=== PATIENT | female | born 2000 | race Caucasian/White ===

== ENCOUNTER 2020-07-16 12:00 | Emergency (ER) | payer MEDICAID ==
[~2020-07-16] VITALS: Ht 157.5 cm; Wt 60.8 kg
[2020-07-16 12:15] VITALS: BP_SYST 116
[2020-07-16] MEDS ORDERED: NACL 0.9% 1,000 ML IV ONE (12:51)
[2020-07-16] MEDS ORDERED: ONDANSETRON HCL 4 MG/2 ML VIAL IVP ONE (13:00)
[2020-07-16] MEDS ORDERED: KETOROLAC TROMETHAMINE 30 MG VIAL IVP ONE (13:00)
[2020-07-16 13:09] LABS: BASOPHILS % (AUTO) 0.3 % (0.0-2.0); HEMATOCRIT 44.1 % (36-48); HEMOGLOBIN 15.1 g/dL (12.0-16.0); LYMPHOCYTES # (AUTO) 0.6 K/uL (1.0-5.5); LYMPHOCYTES % (AUTO) 4.3 % (20.5-51.5); MEAN CORPUSCULAR HEMOGLOBIN 31 pg (27-31); MEAN CORPUSCULAR HGB CONC 34 % (32-36); MEAN CORPUSCULAR VOLUME 92 fL (79.0-98.0); MONOCYTES # (AUTO) 0.4 K/uL (0.0-1.0); MONOCYTES % (AUTO) 2.8 % (1.7-9.3); NEUTROPHILS % (AUTO) 92.6 % (40.0-70.0); PLATELET COUNT (AUTO) 314 K/uL (130-430); RED BLOOD CELL COUNT(AUTO) 4.81 MIL/uL (4.2-6.2); RED CELL DISTRIBUTION WIDTH 12.8 % (9.0-15.0); WHITE BLOOD COUNT (AUTO) 12.9 K/uL (4.8-10.8)
[2020-07-16 13:22] LABS: CALCIUM 9.4 mg/dL (8.4-11.0); CREATININE 0.79 mg/dL (0.55-1.30); POTASSIUM 3.2 mmol/L (3.5-5.1)
[2020-07-16 13:26] LABS: ALBUMIN 4.3 g/dL (3.4-4.8); TOTAL BILIRUBIN 0.9 mg/dL (0.0-1.0)
[2020-07-16 14:05] LABS: BARBITURATE, URINE NEGATIVE (NEG <=200); BENZODIAZEPINE, URINE NEGATIVE (NEG <=150); COCAINE, URINE NEGATIVE (NEG <=150); METHAMPHETAMINES SCREEN,URINE NEGATIVE (NEG <=500); OPIATE, URINE NEGATIVE (NEG <=100); PHENCYCLIDINE SCREEN,URINE NEGATIVE (NEG <=25); UR TRICYCLIC ANTIDEPRESSANTS NEGATIVE (NEG <=300); URINE AMPHETAMINE NEGATIVE (NEG <=500); URINE METHADONE NEGATIVE (NEG <=200); URINE OXYCODONE SCREEN NEGATIVE (NEG <=100); URINE PROPOXYPHENE SCREEN NEGATIVE (NEG <=300)
[2020-07-16 14:06] LABS: CANNABINOID, URINE POSITIVE (NEG <=50)
[2020-07-16] MEDS ORDERED: HALOPERIDOL LACTATE 5 MG/ML VIAL IVP ONE (14:15)
[2020-07-16] MEDS ORDERED: KCL 20 mEq in 100 mL (PREMIX) 100 ML IV ONE (14:30)
[2020-07-16 16:52] VITALS: BP_SYST 116
== END 2020-07-16 16:52 | disposition home or self-care (01) ==
LOC: SED 12:00
DX: E87.6 Hypokalemia (principal); F12.988 Cannabis use, unspecified with other cannabis-induced disorder; R11.2 Nausea with vomiting, unspecified
CPT/HCPCS: 36415; 80053; 80307; 83690; 85025; 93005; 96365; 96366; 96375; 99284; J1630; J1885; J2405; J3480

== ENCOUNTER 2020-08-23 18:54 | Emergency (ER) | payer MEDICAID, SELFPAY ==
[~2020-08-23] VITALS: Ht 160 cm; Wt 63.5 kg
[2020-08-23 19:01] VITALS: BP_SYST 106
[2020-08-23 20:50] LABS: BASOPHILS % (AUTO) 0.1 % (0.0-2.0); HEMATOCRIT 42.3 % (36-48); HEMOGLOBIN 14.9 g/dL (12.0-16.0); LYMPHOCYTES # (AUTO) 0.8 K/uL (1.0-5.5); LYMPHOCYTES % (AUTO) 4.3 % (20.5-51.5); MEAN CORPUSCULAR HEMOGLOBIN 32 pg (27-31); MEAN CORPUSCULAR HGB CONC 35 % (32-36); MEAN CORPUSCULAR VOLUME 90 fL (79.0-98.0); MONOCYTES # (AUTO) 0.5 K/uL (0.0-1.0); NEUTROPHILS # (AUTO) 16.7 K/uL (1.8-7.7); NEUTROPHILS % (AUTO) 92.6 % (40.0-70.0); PLATELET COUNT (AUTO) 334 K/uL (130-430); RED BLOOD CELL COUNT(AUTO) 4.72 MIL/uL (4.2-6.2); RED CELL DISTRIBUTION WIDTH 12.2 % (9.0-15.0)
[2020-08-23 21:11] LABS: CALCIUM 9.1 mg/dL (8.4-11.0); CREATININE 0.69 mg/dL (0.55-1.30); POTASSIUM 3.6 mmol/L (3.5-5.1)
[2020-08-23 21:16] LABS: ALBUMIN 4.5 g/dL (3.4-4.8); TOTAL BILIRUBIN 1.3 mg/dL (0.0-1.0)
[2020-08-23] MEDS ORDERED: NACL 0.9% 1,000 ML IV ONE (21:30)
[2020-08-23] MEDS ORDERED: HALOPERIDOL LACTATE 5 MG/ML VIAL IVP ONE (22:15)
[2020-08-24 00:13] VITALS: BP_SYST 106
== END 2020-08-24 00:10 | disposition home or self-care (01) ==
LOC: SED 18:54
DX: R11.10 Vomiting, unspecified (principal)
CPT/HCPCS: 36415; 74177; 76700; 80053; 81025; 83690; 85025; 96361; 96374; 99285; J1630; J7030; Q9967

== ENCOUNTER 2021-04-20 20:31 | Emergency (ER) | payer MEDICAID, SELFPAY ==
[~2021-04-20] VITALS: Ht 157.5 cm; Wt 61.7 kg
[2021-04-20 20:31] VITALS: BP_SYST 125
[2021-04-20] MEDS ORDERED: MAG-AL HYDROX/SIMETH 30 ML UDC PO ONE (21:15)
[2021-04-20] MEDS ORDERED: LIDOCAINE VISCOUS 2%, 15 ML UDC MM ONE (21:15)
[2021-04-20] MEDS ORDERED: FAMO40TA71 PO (21:44)
[2021-04-20 22:00] VITALS: BP_SYST 125
== END 2021-04-20 22:00 | disposition home or self-care (01) ==
LOC: SED 20:31
DX: F12.988 Cannabis use, unspecified with other cannabis-induced disorder (principal); K21.9 Gastro-esophageal reflux disease without esophagitis; Z79.899 Other long term (current) drug therapy
CPT/HCPCS: 93005; 99283; J2001

== ENCOUNTER 2021-04-22 22:23 | Emergency (ER) | payer MEDICAID, SELFPAY ==
[~2021-04-22] VITALS: Ht 157.5 cm; Wt 61.2 kg
[~2021-04-22 22:23] MED LIST: FAMO40TA71 PO
[2021-04-22 22:30] VITALS: BP_SYST 141
[2021-04-22] MEDS ORDERED: ONDANSETRON 4 MG ODT TAB PO ONE (22:45)
[2021-04-22] MEDS ORDERED: ONDANSETRON HCL 4 MG/2 ML VIAL IVP ONE (23:00)
[2021-04-22] MEDS ORDERED: DIPHENHYDRAMINE INJ 50 MG/ML VIAL IVP ONE (23:30)
[2021-04-22] MEDS ORDERED: METOCLOPRAMIDE HCL 10 MG/2 ML VIAL IVP ONE (23:30)
[2021-04-22] MEDS ORDERED: NACL 0.9% 1,000 ML IV ONE (23:30)
[2021-04-22 23:38] LABS: BILIRUBIN,URINE 1+ (NEGATIVE); BLOOD, URINE 1+ (NEGATIVE); CLARITY/URINE SL CLOUDY (CLEAR); COLOR,URINE YELLOW (YELLOW); GLUCOSE,URINE NEGATIVE (NEGATIVE); KETONES,URINE 3+ (NEGATIVE); LEUKOCYTE ESTERASE ,URINE 2+ (NEGATIVE); NITRITE, URINE NEGATIVE (NEGATIVE); PROTEIN URINE TRACE (NEGATIVE)
[2021-04-22 23:43] LABS: BACTERIA,URINE MODERATE /HPF (None Seen)
[2021-04-22 23:50] LABS: BASOPHILS # (AUTO) 0.2 K/uL (0.0-0.2); BASOPHILS % (AUTO) 1.9 % (0.0-2.0); EOSINOPHILS % (AUTO) 0.1 % (0.0-4.0); HEMATOCRIT 42.5 % (36-48); HEMOGLOBIN 14.7 g/dL (12.0-16.0); LYMPHOCYTES # (AUTO) 1.7 K/uL (1.0-5.5); LYMPHOCYTES % (AUTO) 16.2 % (20.5-51.5); MEAN CORPUSCULAR HEMOGLOBIN 32 pg (27-31); MEAN CORPUSCULAR HGB CONC 35 % (32-36); MEAN CORPUSCULAR VOLUME 91 fL (79.0-98.0); MONOCYTES # (AUTO) 0.5 K/uL (0.0-1.0); MONOCYTES % (AUTO) 4.4 % (1.7-9.3); NEUTROPHILS % (AUTO) 77.4 % (40.0-70.0); PLATELET COUNT (AUTO) 342 K/uL (130-430); RED BLOOD CELL COUNT(AUTO) 4.65 MIL/uL (4.2-6.2); RED CELL DISTRIBUTION WIDTH 12.8 % (9.0-15.0); WHITE BLOOD COUNT (AUTO) 10.3 K/uL (4.8-10.8)
[2021-04-22 23:54] LABS: CALCIUM 8.9 mg/dL (8.4-11.0); CREATININE 0.83 mg/dL (0.55-1.30)
[2021-04-23] LABS: TOTAL BILIRUBIN 0.9 mg/dL (0.0-1.0)
[2021-04-23] MEDS ORDERED: KCL 20 mEq in NS 1000 mL 1,000 ML IV ONE
[2021-04-23 00:01] LABS: POTASSIUM 2.7 mmol/L (3.5-5.1)
[2021-04-23] MEDS ORDERED: KCL 20 mEq in 100 mL (PREMIX) 100 ML IV ONE (00:15)
[2021-04-23] MEDS ORDERED: KETOROLAC TROMETHAMINE 30 MG VIAL IVP ONE (00:30)
[2021-04-23] MEDS ORDERED: METOCLOPRAMIDE HCL 10 MG/2 ML VIAL IVP ONE (01:15)
[2021-04-23] MEDS ORDERED: NACL 0.9% 1,000 ML IV ONE (01:15)
[2021-04-23] MEDS ORDERED: DIPHENHYDRAMINE INJ 50 MG/ML VIAL IVP ONE (01:30)
[2021-04-23] MEDS ORDERED: CIPR500T5 PO (02:00)
[2021-04-23] MEDS ORDERED: PHE25 PO (02:00)
[2021-04-23] MEDS ORDERED: IBUP-1969 PO (02:00)
[2021-04-23 02:49] VITALS: BP_SYST 107
[2021-04-23] MEDS ORDERED: HAL5 PO (07:47)
[2021-04-23] MEDS ORDERED: BENZ1TAB8 PO (07:47)
== END 2021-04-23 02:49 | disposition home or self-care (01) ==
LOC: SED 22:23
DX: N39.0 Urinary tract infection, site not specified (principal); R11.2 Nausea with vomiting, unspecified; K21.9 Gastro-esophageal reflux disease without esophagitis; Z79.899 Other long term (current) drug therapy
CPT/HCPCS: 36415; 80053; 81000; 81025; 83690; 85025; 87086; 96361; 96365; 96366; 96375 ×2; 96376; 99284; J1200 ×2; J1885; J2405; J2765 ×2; J3480; J7030

== ENCOUNTER 2021-04-23 06:23 | Emergency (ER) | payer MEDICAID ==
[~2021-04-23] VITALS: Ht 157.5 cm; Wt 61.2 kg
[2021-04-23 06:23] VITALS: BP_SYST 140
[~2021-04-23 06:23] MED LIST changes: +CIPR500T5 PO; +IBUP-1969 PO; +PHE25 PO
[2021-04-23] MEDS: DIPHENHYDRAMINE INJ 50 MG/ML VIAL IVP ONE (06:52)
[2021-04-23] MEDS: KETOROLAC TROMETHAMINE 30 MG VIAL IVP ONE (06:54)
[2021-04-23] MEDS: HALOPERIDOL LACTATE 5 MG/ML VIAL IVP ONE (06:55)
[2021-04-23] MEDS: NACL 0.9% 1,000 ML IV ONE (06:56)
[2021-04-23 07:04] LABS: BASOPHILS % (AUTO) 0.3 % (0.0-2.0); HEMATOCRIT 39.5 % (36-48); LYMPHOCYTES # (AUTO) 1.3 K/uL (1.0-5.5); LYMPHOCYTES % (AUTO) 11.9 % (20.5-51.5); MEAN CORPUSCULAR HEMOGLOBIN 32 pg (27-31); MEAN CORPUSCULAR HGB CONC 35 % (32-36); MEAN CORPUSCULAR VOLUME 90 fL (79.0-98.0); MONOCYTES # (AUTO) 0.5 K/uL (0.0-1.0); MONOCYTES % (AUTO) 5.1 % (1.7-9.3); NEUTROPHILS # (AUTO) 8.9 K/uL (1.8-7.7); NEUTROPHILS % (AUTO) 82.7 % (40.0-70.0); PLATELET COUNT (AUTO) 311 K/uL (130-430); RED BLOOD CELL COUNT(AUTO) 4.38 MIL/uL (4.2-6.2); RED CELL DISTRIBUTION WIDTH 12.3 % (9.0-15.0); WHITE BLOOD COUNT (AUTO) 10.8 K/uL (4.8-10.8)
[2021-04-23 07:12] LABS: CALCIUM 8.3 mg/dL (8.4-11.0); CREATININE 0.67 mg/dL (0.55-1.30); POTASSIUM 3.3 mmol/L (3.5-5.1)
[2021-04-23 07:23] LABS: ALBUMIN 3.7 g/dL (3.4-4.8); TOTAL BILIRUBIN 0.9 mg/dL (0.0-1.0)
[2021-04-23] MEDS: POTASSIUM CHLORIDE 20 MEQ TAB.PRT.SR PO ONE (07:34)
[2021-04-23] MEDS ORDERED: BENZ1TAB8 PO (07:47)
[2021-04-23] MEDS ORDERED: HAL5 PO (07:47)
[2021-04-23 07:52] VITALS: BP_SYST 140
== END 2021-04-23 07:53 | disposition home or self-care (01) ==
LOC: SED 06:23
DX: F12.988 Cannabis use, unspecified with other cannabis-induced disorder (principal); R11.10 Vomiting, unspecified; K21.9 Gastro-esophageal reflux disease without esophagitis; Z79.899 Other long term (current) drug therapy
CPT/HCPCS: 36415; 80053; 85025; 93005; 96361; 96374; 96375; 99284; J1200; J1630; J1885; J7030

== ENCOUNTER 2021-09-21 12:07 | Emergency (ER) | payer MEDICAID ==
[~2021-09-21] VITALS: Ht 162.6 cm; Wt 70.3 kg
[~2021-09-21 12:07] MED LIST changes: +BENZ1TAB8 PO; -FAMO40TA71 PO; +HAL5 PO
[2021-09-21 13:08] VITALS: BP_SYST 124
--- NOTE | 2021-09-21 13:17 | NUR ---
Patient to ER bed T-1 to gown for evaluation. Side rails up. Report given to PELON.
[2021-09-21] MEDS ORDERED: ONDANSETRON 4 MG ODT TAB PO ONE (14:15)
[2021-09-21 14:52] LABS: BASOPHILS % (AUTO) 0.1 % (0.0-2.0); HEMATOCRIT 41.7 % (36-48); LYMPHOCYTES # (AUTO) 0.7 K/uL (1.0-5.5); MEAN CORPUSCULAR HEMOGLOBIN 31 pg (27-31); MEAN CORPUSCULAR HGB CONC 34 % (32-36); MEAN CORPUSCULAR VOLUME 92 fL (79.0-98.0); MONOCYTES # (AUTO) 0.5 K/uL (0.0-1.0); MONOCYTES % (AUTO) 2.8 % (1.7-9.3); NEUTROPHILS % (AUTO) 93.1 % (40.0-70.0); PLATELET COUNT (AUTO) 333 K/uL (130-430); RED BLOOD CELL COUNT(AUTO) 4.52 MIL/uL (4.2-6.2); RED CELL DISTRIBUTION WIDTH 12.6 % (9.0-15.0); WHITE BLOOD COUNT (AUTO) 18.3 K/uL (4.8-10.8)
[2021-09-21 15:10] LABS: ANION GAP 14 (5-15); CALCIUM 8.9 mg/dL (8.4-11.0); CHLORIDE 104 mmol/L (98-107); CREATININE 0.77 mg/dL (0.55-1.30); GLUCOSE 134 mg/dL (70-99); POTASSIUM 3.8 mmol/L (3.5-5.1); SODIUM SERUM 141 mmol/L (136-145); UREA NITROGEN, BLOOD 16 mg/dL (8-21)
[2021-09-21 15:12] LABS: GFR AFRICAN AMERICAN 119 mL/min (>90)
[2021-09-21 15:16] LABS: ALANINE AMINOTRANSFERASE 33 U/L (12-78); ALBUMIN 4.3 g/dL (3.4-4.8); AMYLASE 43 U/L (0-100); ASPARTATE AMINOTRANSFERASE 24 U/L (10-37); LIPASE 98 U/L (73-393); TOTAL BILIRUBIN 0.4 mg/dL (0.0-1.0)
[2021-09-21 15:19] LABS: C-REACTIVE PROTEIN QUANT < 0.2 mg/dL (0-0.5); PROTHROMBIN TIME 10.3 SECS (9.5-12.5)
[2021-09-21 15:26] LABS: BILIRUBIN,URINE NEGATIVE (NEGATIVE); CLARITY/URINE CLEAR (CLEAR); COLOR,URINE YELLOW (YELLOW); GLUCOSE,URINE NEGATIVE (NEGATIVE); KETONES,URINE TRACE (NEGATIVE); LEUKOCYTE ESTERASE ,URINE NEGATIVE (NEGATIVE); NITRITE, URINE NEGATIVE (NEGATIVE); PROTEIN URINE NEGATIVE (NEGATIVE)
[2021-09-21 15:45] LABS: BLOOD, URINE TRACE (NEGATIVE)
[2021-09-21 15:47] LABS: BACTERIA,URINE FEW /HPF (None Seen); MUCUS,URINE None Seen /LPF (None Seen); RBC,URINE 0-3 /HPF (0-3); WBC,URINE 0-3 /HPF (0-3)
[2021-09-21] MEDS ORDERED: OMEP20CA15 PO (17:41)
[2021-09-21] MEDS ORDERED: METO-290 PO (17:41)
== END 2021-09-21 17:41 | disposition home or self-care (01) ==
LOC: SED 12:07
DX: K31.84 Gastroparesis (principal); I10 Essential (primary) hypertension; Z79.899 Other long term (current) drug therapy
CPT/HCPCS: 36415; 76376; 80053; 81000; 81025; 82150; 83605; 83690; 84703; 85025; 85610-TC; 85730-TC; 86140; 99284

== ENCOUNTER 2022-11-02 06:08 | Emergency (ER) | payer MEDICAID ==
[~2022-11-02] VITALS: Ht 160 cm; Wt 63.5 kg
[~2022-11-02 06:08] MED LIST changes: +METO-290 PO; +OMEP20CA15 PO
[2022-11-02 06:21] VITALS: BP_SYST 137
--- NOTE | 2022-11-02 06:21 | NUR ---
Patient triaged and placed in waiting room. VSS and patient appears in no acute distress at this time. Awaiting available bed, and MD notified of need for MSE.
--- NOTE | 2022-11-02 06:58 | NUR ---
Patient to [facility] for evaluation. Side rails up. Report given to Sarika SHANKS.
--- NOTE | 2022-11-02 06:59 | NUR ---
ER at bedside examining patient.
[2022-11-02] MEDS ORDERED: HALOPERIDOL LACTATE 5 MG/ML VIAL IM ONE (07:00)
[2022-11-02] MEDS ORDERED: DIPHENHYDRAMINE INJ 50 MG/ML VIAL IM ONE (07:00)
--- NOTE | 2022-11-02 07:10 | NUR ---
RECIEVED REPORT FROM DIMITRIS DA SILVA. PT IS AAOX3, VSS, NO EMESIS AT THIS TIME.
[2022-11-02 07:57] LABS: CALCIUM 9.1 mg/dL (8.4-11.0); CREATININE 0.91 mg/dL (0.55-1.30)
--- NOTE | 2022-11-02 08:00 | NUR ---
real estate clerk COLLECTED BLOOD FOR ANALYSIS, COLLECTED URINE FOR poc hcG URINE IS NEGATIVE.
[2022-11-02] MEDS ORDERED: HAL5 PO (08:10)
[2022-11-02] MEDS ORDERED: BENZ1TAB8 PO (08:10)
[2022-11-02 08:32] VITALS: BP_SYST 121
--- NOTE | 2022-11-02 08:32 | NUR ---
Patient given written and verbal discharge instructions and verbalizes understanding. ER MD discussed with patient the results and treatment provided. Patient in stable condition. ID arm band removed. IV catheter removed intact and dressing applied, no active bleeding. Rx of HALDOL AND COGENTIN given. Patient educated on pain management and to follow up with PMD. Opportunity for questions provided and answered. Medication side effect fact sheet provided.
[2022-11-03] MEDS ORDERED: OMEP20TA20 PO (17:08)
[2022-11-03] MEDS ORDERED: ONDA-8 TL (17:08)
== END 2022-11-02 08:32 | disposition home or self-care (01) ==
LOC: SED 06:08
DX: R11.2 Nausea with vomiting, unspecified (principal); K21.9 Gastro-esophageal reflux disease without esophagitis; F12.90 Cannabis use, unspecified, uncomplicated; Z79.899 Other long term (current) drug therapy
CPT/HCPCS: 99284; 80048; 36415; 81025; 96372; J1200; J1630

== ENCOUNTER 2022-11-03 14:35 | Emergency (ER) | payer MEDICAID ==
[~2022-11-03] VITALS: Ht 152.4 cm; Wt 61.2 kg
[2022-11-03 14:51] VITALS: BP_SYST 125
[2022-11-03] MEDS ORDERED: ONDANSETRON 4 MG ODT TAB PO ONE (15:00)
--- NOTE | 2022-11-03 15:25 | NUR ---
Pt brought by self, A&Ox4, pt presents to ER with nausea and vomiting for one week , states she smokes marijuana, skin pink and warm, cap refill <3, VSS, will cont to monitor.
--- NOTE | 2022-11-03 15:50 | NUR ---
Dr Bennett evaluating patient in the triage room
[2022-11-03] MEDS ORDERED: OMEPRAZOLE Non-Formulary 20 MG CAPSULE.DR PO ONE (16:00)
[2022-11-03] MEDS ORDERED: METOCLOPRAMIDE HCL 10 MG/2 ML VIAL IM ONE (16:00)
[2022-11-03] MEDS ORDERED: PANTOPRAZOLE SODIUM 40 MG TAB PO ONE (16:15)
--- NOTE | 2022-11-03 16:30 | NUR ---
No N/V noted at this time, VSS, will cont to monitor
[2022-11-03] MEDS ORDERED: OMEP20TA20 PO (17:08)
[2022-11-03] MEDS ORDERED: ONDA-8 TL (17:08)
[2022-11-03 19:17] VITALS: BP_SYST 125
--- NOTE | 2022-11-03 19:18 | NUR ---
Patient given written and verbal discharge instructions and verbalizes understanding. ER MD discussed with patient the results and treatment provided. Patient in stable condition. ID arm band removed. Rx of Omeprazole and Zofran given. Patient educated on pain management and to follow up with PMD. Pain Scale 0/10 . Opportunity for questions provided and answered. Medication side effect fact sheet provided.
== END 2022-11-03 19:18 | disposition home or self-care (01) ==
LOC: SED 14:35
DX: R11.2 Nausea with vomiting, unspecified (principal); K21.9 Gastro-esophageal reflux disease without esophagitis; F17.200 Nicotine dependence, unspecified, uncomplicated; F12.90 Cannabis use, unspecified, uncomplicated; Z79.899 Other long term (current) drug therapy
CPT/HCPCS: 99283; 96372; Q0162; J2765

== ENCOUNTER → 2022-11-24 | Emergency (ER) | payer MEDICAID ==
[~2022-11-24] VITALS: Ht 160 cm; Wt 61.7 kg
[~2022-11-24] MED LIST changes: +DIPHENHYDRAMINE INJ 50 MG/ML VIAL IVP ONE; +HALOPERIDOL LACTATE 5 MG/ML VIAL IVP ONE; +NACL 0.9% 1,000 ML IV ONE; +OMEP20TA20 PO; +ONDA-8 TL
[2022-11-24 08:53] VITALS: BP_SYST 141
[2022-11-24 09:34] LABS: BASOPHILS % (AUTO) 0.2 % (0.0-2.0); EOSINOPHILS # (AUTO) 0.1 K/uL (0.0-0.4); EOSINOPHILS % (AUTO) 0.5 % (0.0-4.0); HEMATOCRIT 43.6 % (36-48); HEMOGLOBIN 14.6 g/dL (12.0-16.0); LYMPHOCYTES % (AUTO) 8.8 % (20.5-51.5); MEAN CORPUSCULAR HEMOGLOBIN 32 pg (27-31); MEAN CORPUSCULAR HGB CONC 34 % (32-36); MEAN CORPUSCULAR VOLUME 95 fL (79.0-98.0); MONOCYTES # (AUTO) 0.4 K/uL (0.0-1.0); MONOCYTES % (AUTO) 3.7 % (1.7-9.3); NEUTROPHILS # (AUTO) 10.2 K/uL (1.8-7.7); NEUTROPHILS % (AUTO) 86.8 % (40.0-70.0); PLATELET COUNT (AUTO) 302 K/uL (130-430); RED CELL DISTRIBUTION WIDTH 12.8 % (9.0-15.0); WHITE BLOOD COUNT (AUTO) 11.8 K/uL (4.8-10.8)
[2022-11-24 09:49] LABS: CALCIUM 9.1 mg/dL (8.4-11.0); CREATININE 0.68 mg/dL (0.55-1.30)
[2022-11-24 09:54] LABS: ALBUMIN 4.2 g/dL (3.4-4.8); TOTAL BILIRUBIN 0.6 mg/dL (0.0-1.0)
== END | disposition home or self-care (01) ==
LOC: SED 08:40
DX: R11.10 Vomiting, unspecified (principal); K21.9 Gastro-esophageal reflux disease without esophagitis; Z79.899 Other long term (current) drug therapy
CPT/HCPCS: 99284; 96374; 96375; 80053; 83690; 85025; 36415; 93005; J1200; J1630

== ENCOUNTER 2022-11-27 06:10 | Emergency (ER) | payer MEDICAID ==
[~2022-11-27] VITALS: Ht 162.6 cm; Wt 59.0 kg
[~2022-11-27 06:10] MED LIST changes: -DIPHENHYDRAMINE INJ 50 MG/ML VIAL IVP ONE; -HALOPERIDOL LACTATE 5 MG/ML VIAL IVP ONE; -NACL 0.9% 1,000 ML IV ONE
[2022-11-27 06:44] VITALS: BP_SYST 132
--- NOTE | 2022-11-27 06:44 | NUR ---
ER in triage examining patient.
[2022-11-27] MEDS ORDERED: DIPHENHYDRAMINE INJ 50 MG/ML VIAL IVP ONE ×2 (06:45→09:00)
[2022-11-27] MEDS ORDERED: NACL 0.9% 1,000 ML IV ONE ×2 (06:45→09:00)
[2022-11-27] MEDS ORDERED: HALOPERIDOL LACTATE 5 MG/ML VIAL IVP ONE ×2 (06:45→09:00)
--- NOTE | 2022-11-27 06:47 | NUR ---
Patient triaged and placed in waiting room. VS checked and patient appears in no acute distress at this time. Accompanied by self, awaiting available bed, and MD notified of need for MSE.
[2022-11-27 07:38] LABS: CALCIUM 9.5 mg/dL (8.4-11.0); CREATININE 0.72 mg/dL (0.55-1.30)
[2022-11-27 07:43] LABS: HEMATOCRIT 43.7 % (36-48); HEMOGLOBIN 15.6 g/dL (12.0-16.0); MEAN CORPUSCULAR HEMOGLOBIN 33 pg (27-31); MEAN CORPUSCULAR HGB CONC 36 % (32-36); MEAN CORPUSCULAR VOLUME 91 fL (79.0-98.0); RED BLOOD CELL COUNT(AUTO) 4.78 MIL/uL (4.2-6.2)
[2022-11-27 07:44] LABS: BASOPHILS % (AUTO) 0.3 % (0.0-2.0); EOSINOPHILS % (AUTO) 0.1 % (0.0-4.0); LYMPHOCYTES # (AUTO) 1.6 K/uL (1.0-5.5); LYMPHOCYTES % (AUTO) 17.9 % (20.5-51.5); MONOCYTES % (AUTO) 10.7 % (1.7-9.3); NEUTROPHILS # (AUTO) 6.4 K/uL (1.8-7.7); PLATELET COUNT (AUTO) 308 K/uL (130-430); RED CELL DISTRIBUTION WIDTH 12.2 % (9.0-15.0)
[2022-11-27 07:49] LABS: ALBUMIN 4.6 g/dL (3.4-4.8); TOTAL BILIRUBIN 2.4 mg/dL (0.0-1.0)
--- NOTE | 2022-11-27 08:20 | NUR ---
Note bud in EDM - 11/27/22 at 0823 by TERRIE Pt awake alert, complains of unrelated cough. No signs symptoms of cough. Pt provided warm blanket, basin for emesis, bed down rails up.
[2022-11-27 08:34] LABS: BILIRUBIN,URINE 1+ (NEGATIVE); BLOOD, URINE 1+ (NEGATIVE); CLARITY/URINE CLEAR (CLEAR); COLOR,URINE YELLOW (YELLOW); GLUCOSE,URINE NEGATIVE (NEGATIVE); KETONES,URINE 2+ (NEGATIVE); LEUKOCYTE ESTERASE ,URINE NEGATIVE (NEGATIVE); NITRITE, URINE NEGATIVE (NEGATIVE); PROTEIN URINE NEGATIVE (NEGATIVE); UROBILINOGEN,URINE 0.2 (0.2-1.0)
--- NOTE | 2022-11-27 08:44 | NUR ---
SPOKE TO DR JACKSON ABOUT PT CONDITION, THE EXTREME NAUSEA AND HOW LONG IT HAS LASTED ACCORDING TO PT SINCE WEDNESDAY. ACCORDING TO PT SHE HAS NOT EATEN SINCE WEDNESDAY, SHE CANT HOLD WATER IN. THE PERSCRIPTIONS THE DR ORDERED WEDNESDAY PT STATED SHE COULDNT HOLD THEM IN AND THREW THEM UP. I SPOKE TO DR JACKSON THIS MORNING ABOUT A POSSIBLE CT SCAN OF THE ABD. I WAS TOLD SHE IS STILL SMOKING WEED AND THAT IS WHAT IS CAUSING THE PT GI DISTURBANCE. PT ALSO MENTION SHE UNDERSTANDS SHE HAS CHS CANABIS HYPEREMESIS SYNDROME BUT DENIES SMOKING FOR 3 WEEKS NOW. PT CLAIMS THIS GI DISTURBANCE AND HALDOL MEDICATION IS STOPPING HER FROM WORKING. VSS. MEDICATED ORDER. WILL CONTINUE TO MONITOR.
[2022-11-27 08:46] LABS: BARBITURATE, URINE NEGATIVE (NEG <=200); BENZODIAZEPINE, URINE NEGATIVE (NEG <=150); CANNABINOID, URINE POSITIVE (NEG <=50); COCAINE, URINE NEGATIVE (NEG <=150); METHAMPHETAMINES SCREEN,URINE NEGATIVE (NEG <=500); OPIATE, URINE NEGATIVE (NEG <=100); PHENCYCLIDINE SCREEN,URINE NEGATIVE (NEG <=25); UR TRICYCLIC ANTIDEPRESSANTS NEGATIVE (NEG <=300); URINE AMPHETAMINE NEGATIVE (NEG <=500); URINE METHADONE NEGATIVE (NEG <=200); URINE OXYCODONE SCREEN NEGATIVE (NEG <=100); URINE PROPOXYPHENE SCREEN NEGATIVE (NEG <=300)
[2022-11-27] MEDS ORDERED: POTASSIUM CHLORIDE 20 MEQ/PKT PACKET PO ONE (09:00)
[2022-11-27 09:41] LABS: BACTERIA,URINE FEW /HPF (None Seen); MUCUS,URINE 2+ /LPF (None Seen); WBC,URINE 0-3 /HPF (0-3)
[2022-11-27 09:53] VITALS: BP_SYST 132
--- NOTE | 2022-11-27 09:53 | NUR ---
Patient given written and verbal discharge instructions and verbalizes understanding. ER MD discussed with patient the results and treatment provided. Patient in stable condition. ID arm band removed. IV catheter removed intact and dressing applied, no active bleeding. Patient educated on CANNABINOID HYPEREMESIS SYNDROME and to follow up with PMD. Opportunity for questions provided and answered. Medication side effect fact sheet provided.
== END 2022-11-27 09:53 | disposition home or self-care (01) ==
LOC: SED 06:10
DX: R11.2 Nausea with vomiting, unspecified (principal); R10.84 Generalized abdominal pain; K21.9 Gastro-esophageal reflux disease without esophagitis; Z79.899 Other long term (current) drug therapy
CPT/HCPCS: 99284; 96374; 96361; 96375; 80307; 80053; 83690; 85025; 36415; 96376; 81000; J1200; J1630; J7030

== ENCOUNTER 2023-02-20 21:00 | Emergency (ER) | payer MEDICAID ==
[~2023-02-20] VITALS: Ht 160 cm; Wt 59.0 kg
[~2023-02-20 21:00] MED LIST changes: -BENZ1TAB8 PO; +BENZ1TAB82 PO
[2023-02-20 21:20] VITALS: BP_SYST 130
--- NOTE | 2023-02-20 21:20 | NUR ---
Triaged and placed patient back to the waiting room. No acute respiratory distress at this time. VSS. Informed patient to notify ED staff for any changes in condition or worsening of symptoms while waiting to be seen by a provider. Patient verbalized understanding.
[2023-02-20] MEDS ORDERED: NACL 0.9% 1,000 ML IV ONE (22:15)
[2023-02-20] MEDS ORDERED: ONDANSETRON HCL 4 MG/2 ML VIAL IVP ONE (22:15)
[2023-02-20 22:16] LABS: BLOOD, URINE 1+ (NEGATIVE); CLARITY/URINE CLEAR (CLEAR); COLOR,URINE YELLOW (YELLOW); GLUCOSE,URINE NEGATIVE (NEGATIVE); KETONES,URINE TRACE (NEGATIVE); LEUKOCYTE ESTERASE ,URINE NEGATIVE (NEGATIVE); NITRITE, URINE NEGATIVE (NEGATIVE); PH,URINE 5.5 (5.0-8.0); PROTEIN URINE 1+ (NEGATIVE); UROBILINOGEN,URINE 0.2 (0.2-1.0)
[2023-02-20 22:24] LABS: BACTERIA,URINE FEW /HPF (None Seen); MUCUS,URINE 1+ /LPF (None Seen); RBC,URINE NONE SEEN /HPF (0-3); WBC,URINE 0-3 /HPF (0-3)
[2023-02-20 22:25] LABS: HCG,QUAL RESULT NEGATIVE (NEGATIVE)
[2023-02-20 22:26] LABS: BILIRUBIN,URINE 1+ (NEGATIVE)
[2023-02-20 22:32] LABS: BASOPHILS % (AUTO) 0.1 % (0.0-2.0); HEMATOCRIT 45.6 % (36-48); LYMPHOCYTES % (AUTO) 6.8 % (20.5-51.5); MEAN CORPUSCULAR HEMOGLOBIN 32 pg (27-31); MEAN CORPUSCULAR HGB CONC 35 % (32-36); MEAN CORPUSCULAR VOLUME 92 fL (79.0-98.0); MONOCYTES # (AUTO) 0.8 K/uL (0.0-1.0); MONOCYTES % (AUTO) 5.7 % (1.7-9.3); NEUTROPHILS # (AUTO) 12.7 K/uL (1.8-7.7); NEUTROPHILS % (AUTO) 87.4 % (40.0-70.0); PLATELET COUNT (AUTO) 315 K/uL (130-430); RED BLOOD CELL COUNT(AUTO) 4.95 MIL/uL (4.2-6.2); RED CELL DISTRIBUTION WIDTH 12.5 % (9.0-15.0); WHITE BLOOD COUNT (AUTO) 14.6 K/uL (4.8-10.8)
[2023-02-20 22:45] LABS: ALBUMIN 4.9 g/dL (3.4-4.8); CALCIUM 9.3 mg/dL (8.4-11.0); CREATININE 0.98 mg/dL (0.55-1.30); TOTAL BILIRUBIN 1.8 mg/dL (0.0-1.0)
--- NOTE | 2023-02-20 22:45 | NUR ---
pt in bed on monitor. pt dry heaving
[2023-02-20] MEDS ORDERED: POTASSIUM CHLORIDE 20 MEQ in NS 250 ML IV ONE (23:00)
[2023-02-20] MEDS ORDERED: HALOPERIDOL LACTATE 5 MG/ML VIAL IM ONE (23:00)
[2023-02-20] MEDS ORDERED: CAPS60CR4 TP (23:01)
[2023-02-20] MEDS ORDERED: KCL 20 mEq in 100 mL (PREMIX) 100 ML IV ONE (23:45)
[2023-02-21] MEDS ORDERED: PROCHLORPERAZINE EDISYLATE 10 MG/2 ML VIAL IVP ONE (00:45)
[2023-02-21] MEDS ORDERED: PROCHLORPERAZINE EDISYLATE 10 MG/2 ML VIAL IM ONE (01:00)
--- NOTE | 2023-02-21 01:25 | NUR ---
pt feeling nausous.
--- NOTE | 2023-02-21 02:00 | NUR ---
pt still feeling nauseous. md aware
[2023-02-21] MEDS ORDERED: HALOPERIDOL LACTATE 5 MG/ML VIAL IM ONE (02:30)
[2023-02-21] MEDS ORDERED: NACL 0.9% 1,000 ML IV ONE (02:30)
[2023-02-21] MEDS ORDERED: ONDANSETRON HCL 4 MG/2 ML VIAL IVP ONE (02:30)
[2023-02-21] MEDS ORDERED: METO-290 PO (03:08)
[2023-02-21] MEDS ORDERED: POTA-197 PO (03:09)
--- NOTE | 2023-02-21 03:23 | NUR ---
d/c pt home went over d/c paperwork
== END 2023-02-21 03:23 | disposition home or self-care (01) ==
LOC: SED 21:00
DX: R11.2 Nausea with vomiting, unspecified (principal); E87.6 Hypokalemia; D72.829 Elevated white blood cell count, unspecified; E86.0 Dehydration; K21.9 Gastro-esophageal reflux disease without esophagitis; Z79.899 Other long term (current) drug therapy
CPT/HCPCS: 99284; 96361; 96375; 80053; 81000; 84703; 83690; 85025; 36415; 81025; 96372 ×2; J1630 ×2; J2405; J7030; J3480; J0780; 96374; J7050

== ENCOUNTER 2023-06-07 08:29 | Emergency (ER) | payer MEDICAID ==
[~2023-06-07] VITALS: Ht 157.5 cm; Wt 59.0 kg
[~2023-06-07 08:29] MED LIST changes: +CAPS60CR4 TP; +POTA-197 PO
[2023-06-07 08:30] VITALS: BP_SYST 124; PULSE 98; RESP 17; TEMP 98.3; O2SAT 99
--- NOTE | 2023-06-07 08:30 | NUR ---
BROUGHT BACK TO BED #8 AND TRIAGED. REPORT GIVEN TO ESTELA
--- NOTE | 2023-06-07 08:36 | NUR ---
Dr. Parson at bedside.
--- NOTE | 2023-06-07 08:40 | NUR ---
Patient BIB partner c/o vomiting x 4 days. Patient admits to smoking marijuana multiple times per day & believes this is the cause of her vomiting. Patient states this has happened in the past. NKA. WORKMAN.
--- NOTE | 2023-06-07 08:47 | NUR ---
Phlebotomy at bedside obtaining samples for testing.
--- NOTE | 2023-06-07 08:50 | NUR ---
Brant Nguyễn. made aware.
[2023-06-07] MEDS ORDERED: HALOPERIDOL LACTATE 5 MG/ML VIAL IM ONE (09:00)
[2023-06-07] MEDS ORDERED: DIPHENHYDRAMINE INJ 50 MG/ML VIAL IM ONE (09:00)
--- NOTE | 2023-06-07 09:05 | NUR ---
Urine sample obtained & taken to lab. HCG negative.
[2023-06-07 09:11] LABS: BILIRUBIN,URINE 1+ (NEGATIVE); BLOOD, URINE 2+ (NEGATIVE); COLOR,URINE YELLOW (YELLOW); GLUCOSE,URINE NEGATIVE (NEGATIVE); KETONES,URINE 2+ (NEGATIVE); LEUKOCYTE ESTERASE ,URINE NEGATIVE (NEGATIVE); NITRITE, URINE NEGATIVE (NEGATIVE); PH,URINE 5.5 (5.0-8.0); PROTEIN URINE 2+ (NEGATIVE)
[2023-06-07 09:18] LABS: CLARITY/URINE SLIGHTLY HAZY (CLEAR)
[2023-06-07 09:31] LABS: BACTERIA,URINE FEW /HPF (None Seen); HYALINE CASTS, URINE 0-5 /LPF (None Seen); WBC,URINE 0-3 /HPF (0-3)
[2023-06-07 09:33] LABS: BARBITURATE, URINE NEGATIVE (NEG <=200); BENZODIAZEPINE, URINE NEGATIVE (NEG <=150); CANNABINOID, URINE POSITIVE (NEG <=50); COCAINE, URINE NEGATIVE (NEG <=150); METHAMPHETAMINES SCREEN,URINE POSITIVE (NEG <=500); OPIATE, URINE NEGATIVE (NEG <=100); PHENCYCLIDINE SCREEN,URINE NEGATIVE (NEG <=25); URINE AMPHETAMINE NEGATIVE (NEG <=500); URINE METHADONE NEGATIVE (NEG <=200); URINE OXYCODONE SCREEN NEGATIVE (NEG <=100); URINE PROPOXYPHENE SCREEN NEGATIVE (NEG <=300)
[2023-06-07 09:34] LABS: UR TRICYCLIC ANTIDEPRESSANTS NEGATIVE (NEG <=300)
[2023-06-07] MEDS ORDERED: ONDA-8 TL (10:43)
[2023-06-07 10:47] VITALS: BP_SYST 120; PULSE 97; RESP 18; TEMP 98.1; O2SAT 97
--- NOTE | 2023-06-07 10:47 | NUR ---
Patient given written and verbal discharge instructions and verbalizes understanding. ER MD JACKSON discussed with patient the results and treatment provided. Patient in stable condition. ID arm band removed. Rx of given. Patient educated on pain management and to follow up with PMD. Pain Scale 0/10. Opportunity for questions provided and answered. Medication side effect fact sheet provided. Addendum: 06/07/23 at 1104 by SDEDWD Patient given written and verbal discharge instructions and verbalizes understanding. ER MD JACKSON discussed with patient the results and treatment provided. Patient in stable condition. ID arm band removed. Rx of ZOFRAN given. Patient educated on pain management and to follow up with PMD. Pain Scale 0/10. Opportunity for questions provided and answered. Medication side effect fact sheet provided.
[2023-06-08] MEDS ORDERED: DIPH25CA83 PO (13:46)
[2023-06-08] MEDS ORDERED: IBUP-1969 PO (13:47)
== END 2023-06-07 10:47 | disposition home or self-care (01) ==
LOC: SED 08:29
DX: R11.10 Vomiting, unspecified (principal); F19.10 Other psychoactive substance abuse, uncomplicated; K21.9 Gastro-esophageal reflux disease without esophagitis; F12.90 Cannabis use, unspecified, uncomplicated; Z79.899 Other long term (current) drug therapy
CPT/HCPCS: 99284; 80307; 81025; 96372; 81000; J1200; J1630

== ENCOUNTER 2023-06-08 11:41 | Emergency (ER) | payer MEDICAID ==
[~2023-06-08] VITALS: Ht 157.5 cm; Wt 59.0 kg
[2023-06-08 11:54] VITALS: BP_SYST 122; PULSE 123; RESP 16; TEMP 97.7
[2023-06-08] MEDS ORDERED: DIPHENHYDRAMINE HCL 25 MG CAPSULE PO ONE (12:30)
--- NOTE | 2023-06-08 13:09 | NUR ---
Placed in room 6 . Placed on quality assurance monitor, blood pressure machine and pulse oximeter. To gown for exam. Side rails up. Report given to
--- NOTE | 2023-06-08 13:14 | NUR ---
DR LYONS AT BEDSIDE TO EVALUATE PT.
[2023-06-08] MEDS ORDERED: KETOROLAC TROMETHAMINE 60 MG/2 ML VIAL IM ONE (13:30)
[2023-06-08] MEDS ORDERED: DIPHENHYDRAMINE INJ 50 MG/ML VIAL IM ONE (13:30)
--- NOTE | 2023-06-08 13:43 | NUR ---
PT STATES SOME IMPROVEMENT FROM MEDICATION, STATES JAW IS LOOSENING UP. MOTHER AT BEDSIDE.
[2023-06-08] MEDS ORDERED: DIPH25CA83 PO (13:46)
[2023-06-08] MEDS ORDERED: IBUP-1969 PO (13:47)
--- NOTE | 2023-06-08 13:50 | NUR ---
DR LYONS SPEAKING WITH PT AND PTS MOTHER AT THIS TIME.
--- NOTE | 2023-06-08 14:03 | NUR ---
Patient given written and verbal discharge instructions and verbalizes understanding. ER MD discussed with patient the results and treatment provided. Patient in stable condition. ID arm band removed. Rx of IBUPROFEN, BENADRYL given. Patient educated on pain management and to follow up with PMD. Pain Scale 0/10. Opportunity for questions provided and answered. Medication side effect fact sheet provided.
[2023-06-08 14:05] VITALS: PULSE 97
== END 2023-06-08 14:03 | disposition home or self-care (01) ==
LOC: SED 11:41
DX: G24.02 Drug induced acute dystonia (principal); A35 Other tetanus; K21.9 Gastro-esophageal reflux disease without esophagitis; F12.90 Cannabis use, unspecified, uncomplicated; Z79.899 Other long term (current) drug therapy
CPT/HCPCS: 99284; 96372; Q0163; J1200; J1885

== ENCOUNTER 2023-06-09 15:20 | Emergency (ER) | payer MEDICAID ==
[~2023-06-09] VITALS: Ht 157.5 cm; Wt 59.0 kg
[~2023-06-09 15:20] MED LIST changes: +DIPH25CA83 PO
[2023-06-09 16:01] VITALS: BP_SYST 118; PULSE 81; RESP 16; TEMP 98; O2SAT 95
[2023-06-09] MEDS ORDERED: ONDANSETRON 4 MG ODT TAB PO ONE (16:45)
--- NOTE | 2023-06-09 18:40 | NUR ---
Patient left without being seen.
[2023-06-09 18:41] VITALS: BP_SYST 118; PULSE 81; RESP 16; TEMP 98; O2SAT 95
== END 2023-06-09 18:41 | disposition left against medical advice (07) ==
LOC: SED 15:20
DX: R11.10 Vomiting, unspecified (principal); Z53.21 Procedure and treatment not carried out due to patient leaving prior to being seen by health care provider
CPT/HCPCS: 99281

== ENCOUNTER 2023-06-26 06:06 | Inpatient (IN) | payer MEDICAID ==
[~2023-06-26] VITALS: Ht 160 cm; Wt 56.7 kg
[2023-06-26 06:10] VITALS: BP_SYST 131; PULSE 105; RESP 16; TEMP 97.9; O2SAT 99
[2023-06-26] MEDS ORDERED: DIPHENHYDRAMINE INJ 50 MG/ML VIAL IVP ONE (06:30)
[2023-06-26] MEDS ORDERED: METOCLOPRAMIDE HCL 10 MG/2 ML VIAL IVP ONE (06:30)
[2023-06-26] MEDS ORDERED: HALOPERIDOL LACTATE 5 MG/ML VIAL IM ONE (06:30)
[2023-06-26 06:43] LABS: BASOPHILS # (AUTO) 0.1 K/uL (0.0-0.2); BASOPHILS % (AUTO) 0.4 % (0.0-2.0); EOSINOPHILS % (AUTO) 0.1 % (0.0-4.0); HEMATOCRIT 46.6 % (36-48); HEMOGLOBIN 15.4 g/dL (12.0-16.0); LYMPHOCYTES # (AUTO) 0.3 K/uL (1.0-5.5); LYMPHOCYTES % (AUTO) 1.9 % (20.5-51.5); MEAN CORPUSCULAR HEMOGLOBIN 31 pg (27-31); MEAN CORPUSCULAR HGB CONC 33 % (32-36); MEAN CORPUSCULAR VOLUME 93 fL (79.0-98.0); MONOCYTES # (AUTO) 0.1 K/uL (0.0-1.0); MONOCYTES % (AUTO) 0.4 % (1.7-9.3); NEUTROPHILS # (AUTO) 16.7 K/uL (1.8-7.7); NEUTROPHILS % (AUTO) 97.2 % (40.0-70.0); PLATELET COUNT (AUTO) 348 K/uL (130-430); RED BLOOD CELL COUNT(AUTO) 5.03 MIL/uL (4.2-6.2); RED CELL DISTRIBUTION WIDTH 12.8 % (9.0-15.0); WHITE BLOOD COUNT (AUTO) 17.2 K/uL (4.8-10.8)
[2023-06-26] MEDS ORDERED: NACL 0.9% 1,000 ML IV ONE ×2 (06:45→07:45)
[2023-06-26 06:58] LABS: CALCIUM 9.4 mg/dL (8.4-11.0); CREATININE 0.89 mg/dL (0.55-1.30); POTASSIUM 3.1 mmol/L (3.5-5.1)
[2023-06-26 07:01] LABS: SERUM HCG (QUALITATIVE) NEGATIVE (NEGATIVE)
[2023-06-26 07:02] LABS: ALBUMIN 4.9 g/dL (3.4-4.8); TOTAL BILIRUBIN 1.1 mg/dL (0.0-1.0); TOTAL PROTEIN, SERUM 8.7 g/dL (6.4-8.3)
[2023-06-26] MEDS ORDERED: METO-290 PO ×2 (07:44)
[2023-06-26] MEDS ORDERED: OMEP20CA15 PO ×2 (07:44)
[2023-06-26] MEDS ORDERED: ONDANSETRON HCL 4 MG/2 ML VIAL IVP ONE (07:45)
[2023-06-26] MEDS ORDERED: ONDANSETRON HCL 4 MG/2 ML VIAL ONE (07:50)
[2023-06-26 08:51] LABS: CLARITY/URINE CLEAR (CLEAR); COLOR,URINE YELLOW (YELLOW); GLUCOSE,URINE NEGATIVE (NEGATIVE); KETONES,URINE 3+ (NEGATIVE); LEUKOCYTE ESTERASE ,URINE NEGATIVE (NEGATIVE); NITRITE, URINE NEGATIVE (NEGATIVE); PROTEIN URINE 2+ (NEGATIVE)
[2023-06-26 09:11] LABS: BILIRUBIN,URINE NEGATIVE (NEGATIVE); BLOOD, URINE TRACE (NEGATIVE)
[2023-06-26] MEDS: NACL 0.9% 1,000 ML IV SCH ×2 (09:28→15:55)
[2023-06-26 09:58] VITALS: BP_SYST 130; PULSE 95; RESP 18; TEMP 96.4; O2SAT 98
[2023-06-26 10:07] LABS: RBC,URINE 0-3 /HPF (0-3); WBC,URINE 0-3 /HPF (0-3)
[2023-06-26 10:08] LABS: BACTERIA,URINE None Seen /HPF (None Seen)
[2023-06-26] MEDS ORDERED: LORazepam 2 MG/ML VIAL IVP ONE (10:15)
[2023-06-26 12:00] VITALS: BP_SYST 140; PULSE 103; RESP 18; TEMP 98; O2SAT 100
[2023-06-26] MEDS: ONDANSETRON HCL 4 MG/2 ML VIAL IVP PRN ×2 (14:44→18:39)
[2023-06-26 16:00] VITALS: BP_SYST 159; PULSE 102; RESP 18; TEMP 97.8
[2023-06-26 19:00] VITALS: O2SAT 98
[2023-06-26] MEDS: KCL 20 mEq in NS 1000 mL 1,000 ML IV SCH (19:15)
[2023-06-27] MEDS: NACL 0.9% 1,000 ML IV SCH (01:15)
[2023-06-27 01:46] VITALS: BP_SYST 101; PULSE 69; RESP 18; TEMP 98.2; O2SAT 98
[2023-06-27] MEDS ORDERED: KCL 20 mEq in NS 1000 mL 1,000 ML IV ONE (01:59)
[2023-06-27 02:00] VITALS: BP_SYST 101; PULSE 69; RESP 18; TEMP 98.2; O2SAT 98
[2023-06-27] MEDS: KCL 20 mEq in NS 1000 mL 1,000 ML IV SCH (02:18)
[2023-06-27 08:00] VITALS: BP_SYST 97; PULSE 17; RESP 17; TEMP 97.5; O2SAT 99
[2023-06-27] MEDS ORDERED: HYDROcodone/ACETAMIN 5-325 MG TAB (NORCO/ VICODIN) PO PRN (09:00)
[2023-06-27 10:23] VITALS: O2SAT 99
[2023-06-27 11:07] VITALS: BP_SYST 107; PULSE 77; RESP 17; TEMP 97.8; O2SAT 98
[2023-06-27 11:44] LABS: BILIRUBIN,URINE NEGATIVE (NEGATIVE); COLOR,URINE YELLOW (YELLOW); GLUCOSE,URINE NEGATIVE (NEGATIVE); KETONES,URINE 3+ (NEGATIVE); LEUKOCYTE ESTERASE ,URINE NEGATIVE (NEGATIVE); NITRITE, URINE NEGATIVE (NEGATIVE); PROTEIN URINE NEGATIVE (NEGATIVE)
[2023-06-27 11:46] LABS: BLOOD, URINE TRACE (NEGATIVE); CLARITY/URINE SLIGHTLY HAZY (CLEAR)
[2023-06-27] MEDS ORDERED: HYDR-3919 PO (12:09)
[2023-06-27] MEDS ORDERED: NAPR-688 PO (12:12)
[2023-06-27 12:26] LABS: BACTERIA,URINE RARE /HPF (None Seen); RBC,URINE 0-3 /HPF (0-3); WBC,URINE NONE SEEN /HPF (0-3)
[2023-06-27 13:07] VITALS: BP_SYST 97; PULSE 72; RESP 17; TEMP 97.5; O2SAT 99
== END 2023-06-27 13:33 | disposition home or self-care (01) | DRG 254 ==
LOC: SED 06:06 → SMU 09:03
PROVIDERS: ADMIT Family Medicine; ATTEND Family Medicine
DX: K31.84 Gastroparesis (principal); R65.10 Systemic inflammatory response syndrome (SIRS) of non-infectious origin without acute organ dysfunction; E87.6 Hypokalemia; K21.9 Gastro-esophageal reflux disease without esophagitis; R73.9 Hyperglycemia, unspecified; Z79.899 Other long term (current) drug therapy; Z79.1 Long term (current) use of non-steroidal anti-inflammatories (NSAID); F12.10 Cannabis abuse, uncomplicated
CPT/HCPCS: 36415; 76700-TC; 76705; 80053; 81000; 82150; 83605; 83690; 84703; 85025; 96374; 96375; 99285; J1200; J2060; J2405; J2765; J3480; J7030

== ENCOUNTER 2023-07-08 06:11 | Emergency (ER) | payer MEDICAID ==
[~2023-07-08] VITALS: Ht 160 cm; Wt 56.7 kg
[~2023-07-08 06:11] MED LIST changes: -BENZ1TAB82 PO; -CAPS60CR4 TP; -CIPR500T5 PO; -DIPH25CA83 PO; -HAL5 PO; -IBUP-1969 PO; -METO-290 PO; +NAPR-688 PO; -OMEP20CA15 PO; -OMEP20TA20 PO; -ONDA-8 TL; -POTA-197 PO
[2023-07-08 06:41] VITALS: BP_SYST 122; PULSE 106; RESP 23; TEMP 97.4; O2SAT 99
[2023-07-08] MEDS ORDERED: KETOROLAC TROMETHAMINE 30 MG VIAL IVP ONE (07:15)
[2023-07-08] MEDS ORDERED: NACL 0.9% 1,000 ML IV ONE (07:15)
[2023-07-08] MEDS ORDERED: ONDANSETRON HCL 4 MG/2 ML VIAL IVP ONE (07:15)
[2023-07-08 07:46] LABS: BASOPHILS % (AUTO) 0.2 % (0.0-2.0); HEMATOCRIT 41.3 % (36-48); HEMOGLOBIN 13.9 g/dL (12.0-16.0); LYMPHOCYTES # (AUTO) 0.7 K/uL (1.0-5.5); MEAN CORPUSCULAR HEMOGLOBIN 31 pg (27-31); MEAN CORPUSCULAR HGB CONC 34 % (32-36); MEAN CORPUSCULAR VOLUME 91 fL (79.0-98.0); MONOCYTES # (AUTO) 0.5 K/uL (0.0-1.0); MONOCYTES % (AUTO) 4.5 % (1.7-9.3); NEUTROPHILS % (AUTO) 89.3 % (40.0-70.0); PLATELET COUNT (AUTO) 293 K/uL (130-430); RED BLOOD CELL COUNT(AUTO) 4.53 MIL/uL (4.2-6.2); RED CELL DISTRIBUTION WIDTH 12.7 % (9.0-15.0); WHITE BLOOD COUNT (AUTO) 11.2 K/uL (4.8-10.8)
[2023-07-08 07:54] LABS: CREATININE 0.73 mg/dL (0.55-1.30)
[2023-07-08 07:59] LABS: ALBUMIN 4.4 g/dL (3.4-4.8); TOTAL PROTEIN, SERUM 7.8 g/dL (6.4-8.3)
[2023-07-08 08:05] LABS: BILIRUBIN,URINE 2+ (NEGATIVE); BLOOD, URINE 3+ (NEGATIVE); CLARITY/URINE CLEAR (CLEAR); COLOR,URINE YELLOW (YELLOW); GLUCOSE,URINE NEGATIVE (NEGATIVE); KETONES,URINE 3+ (NEGATIVE); LEUKOCYTE ESTERASE ,URINE NEGATIVE (NEGATIVE); NITRITE, URINE NEGATIVE (NEGATIVE); PROTEIN URINE 2+ (NEGATIVE)
[2023-07-08 08:37] LABS: BACTERIA,URINE RARE /HPF (None Seen); MUCUS,URINE 3+ /LPF (None Seen); WBC,URINE 0-3 /HPF (0-3)
[2023-07-08 08:45] LABS: BARBITURATE, URINE NEGATIVE (NEG <=200); BENZODIAZEPINE, URINE NEGATIVE (NEG <=150); COCAINE, URINE NEGATIVE (NEG <=150); METHAMPHETAMINES SCREEN,URINE NEGATIVE (NEG <=500); URINE AMPHETAMINE NEGATIVE (NEG <=500); URINE METHADONE NEGATIVE (NEG <=200)
[2023-07-08 08:46] LABS: CANNABINOID, URINE POSITIVE (NEG <=50); OPIATE, URINE NEGATIVE (NEG <=100); PHENCYCLIDINE SCREEN,URINE NEGATIVE (NEG <=25); URINE OXYCODONE SCREEN NEGATIVE (NEG <=100); URINE PROPOXYPHENE SCREEN NEGATIVE (NEG <=300)
[2023-07-08 08:47] LABS: UR TRICYCLIC ANTIDEPRESSANTS NEGATIVE (NEG <=300)
[2023-07-08] MEDS ORDERED: ONDA-8 TL ×2 (09:08→09:10)
[2023-07-08] MEDS ORDERED: POTASSIUM CHLORIDE 20 MEQ/PKT PACKET PO ONE (09:15)
[2023-07-08 10:16] VITALS: BP_SYST 130; PULSE 82; RESP 23; TEMP 97.4; O2SAT 99
== END 2023-07-08 10:16 | disposition home or self-care (01) ==
LOC: SED 06:11
DX: E87.6 Hypokalemia (principal); R10.9 Unspecified abdominal pain; E86.0 Dehydration; R11.10 Vomiting, unspecified; R31.29 Other microscopic hematuria; K21.9 Gastro-esophageal reflux disease without esophagitis; F12.90 Cannabis use, unspecified, uncomplicated; Z88.8 Allergy status to other drugs, medicaments and biological substances; Z79.899 Other long term (current) drug therapy
CPT/HCPCS: 99285; 74176; 96374; 96375; 80307; 80053; 81000; 83690; 85025; 36415; 76376; 81025; J1885; J2405

== ENCOUNTER 2023-07-30 04:48 | Emergency (ER) | payer MEDICAID ==
[~2023-07-30] VITALS: Ht 157.5 cm; Wt 56.7 kg
[~2023-07-30 04:48] MED LIST changes: +ONDA-8 TL
[2023-07-30 05:07] VITALS: BP_SYST 140; PULSE 102; RESP 20; TEMP 97.7; O2SAT 99
[2023-07-30] MEDS ORDERED: NACL 0.9% 1,000 ML IV ONE (05:15)
[2023-07-30] MEDS ORDERED: FAMOTIDINE PF 20 MG/2 ML VIAL IVP ONE (05:30)
[2023-07-30] MEDS ORDERED: DIPHENHYDRAMINE INJ 50 MG/ML VIAL IVP ONE (05:30)
[2023-07-30] MEDS ORDERED: METOCLOPRAMIDE HCL 10 MG/2 ML VIAL IVP ONE ×2 (05:30→06:45)
[2023-07-30 05:55] LABS: BILIRUBIN,URINE NEGATIVE (NEGATIVE); CLARITY/URINE Clear (CLEAR); COLOR,URINE YELLOW (YELLOW); GLUCOSE,URINE NEGATIVE (NEGATIVE); KETONES,URINE 4+ (NEGATIVE); NITRITE, URINE NEGATIVE (NEGATIVE); PH,URINE 5.5 (5.0-8.0); PROTEIN URINE 1+ (NEGATIVE); UROBILINOGEN,URINE 0.2 (0.2-1.0)
[2023-07-30 06:02] LABS: BASOPHILS % (AUTO) 0.1 % (0.0-2.0); HEMATOCRIT 42.3 % (36-48); HEMOGLOBIN 14.6 g/dL (12.0-16.0); LYMPHOCYTES # (AUTO) 0.5 K/uL (1.0-5.5); LYMPHOCYTES % (AUTO) 3.2 % (20.5-51.5); MEAN CORPUSCULAR HEMOGLOBIN 31 pg (27-31); MEAN CORPUSCULAR HGB CONC 34 % (32-36); MEAN CORPUSCULAR VOLUME 91 fL (79.0-98.0); MONOCYTES # (AUTO) 0.3 K/uL (0.0-1.0); NEUTROPHILS # (AUTO) 14.1 K/uL (1.8-7.7); NEUTROPHILS % (AUTO) 94.7 % (40.0-70.0); PLATELET COUNT (AUTO) 329 K/uL (130-430); RED BLOOD CELL COUNT(AUTO) 4.64 MIL/uL (4.2-6.2); RED CELL DISTRIBUTION WIDTH 12.7 % (9.0-15.0); WHITE BLOOD COUNT (AUTO) 14.9 K/uL (4.8-10.8)
[2023-07-30 06:18] LABS: BLOOD, URINE TRACE (NEGATIVE); LEUKOCYTE ESTERASE ,URINE NEGATIVE (NEGATIVE)
[2023-07-30 06:31] LABS: ANION GAP 16 (5-15); CARBON DIOXIDE 20 mmol/L (23-29); CHLORIDE 101 mmol/L (98-107); CREATININE 0.82 mg/dL (0.55-1.30); GFR AFRICAN AMERICAN 109 mL/min (>90); GLUCOSE 175 mg/dL (74-106); POTASSIUM 3.2 mmol/L (3.5-5.1); SODIUM SERUM 137 mmol/L (136-145); UREA NITROGEN, BLOOD 16 mg/dL (8-21)
[2023-07-30 06:33] LABS: GFR NON AFRICAN-AMERICAN 90 mL/min (>90)
[2023-07-30 06:34] LABS: BARBITURATE, URINE NEGATIVE (NEG <=200); BENZODIAZEPINE, URINE NEGATIVE (NEG <=150); CANNABINOID, URINE NEGATIVE (NEG <=50); COCAINE, URINE NEGATIVE (NEG <=150); METHAMPHETAMINES SCREEN,URINE NEGATIVE (NEG <=500); OPIATE, URINE NEGATIVE (NEG <=100); PHENCYCLIDINE SCREEN,URINE NEGATIVE (NEG <=25); URINE AMPHETAMINE NEGATIVE (NEG <=500); URINE METHADONE NEGATIVE (NEG <=200); URINE OXYCODONE SCREEN NEGATIVE (NEG <=100); URINE PROPOXYPHENE SCREEN NEGATIVE (NEG <=300)
[2023-07-30 06:35] LABS: ALANINE AMINOTRANSFERASE 12 U/L (12-78); ALBUMIN 4.8 g/dL (3.4-4.8); ASPARTATE AMINOTRANSFERASE 15 U/L (10-37); LIPASE 77 U/L (73-393); TOTAL PROTEIN, SERUM 8.1 g/dL (6.4-8.3)
[2023-07-30 06:35] LABS: UR TRICYCLIC ANTIDEPRESSANTS NEGATIVE (NEG <=300)
[2023-07-30 06:40] LABS: ALCOHOL, BLOOD < 3 mg/dL (<10)
[2023-07-30] MEDS ORDERED: METO-290 PO (06:50)
[2023-07-30 07:23] LABS: BACTERIA,URINE RARE /HPF (None Seen)
[2023-07-30 07:40] VITALS: BP_SYST 140; PULSE 102; RESP 20; TEMP 97.7; O2SAT 99
== END 2023-07-30 07:40 | disposition home or self-care (01) ==
LOC: SED 04:48
DX: R11.10 Vomiting, unspecified (principal); R10.13 Epigastric pain; R19.7 Diarrhea, unspecified; K21.9 Gastro-esophageal reflux disease without esophagitis; Z88.8 Allergy status to other drugs, medicaments and biological substances; Z79.899 Other long term (current) drug therapy
CPT/HCPCS: 99284; 96374; 96375; 96361; 80307; 80053; 83690; 85025; 36415; 93005; 96376; 81025; 81000; 81003; J1200; J3490; J2765; J7030; G0482